=== PATIENT | female | born 1990 | race Caucasian/White ===

== ENCOUNTER 2018-07-08 12:27 | Inpatient (IN) | payer BC ==
--- NOTE | 2018-07-08 13:06 | P.HPOB ---
History of Present Illness H&P Date: 07/08/18 Chief Complaint: Twins at 36-6/7 This is a 28-year-old 2 para 1001 woman with an estimated due date of who presents at 36-6/7 weeks' gestation with diamniotic dichorionic twin gestation. She is found to have advanced cervical dilation, probable early labor in the office today. One week ago at routine visit she was 2 cm dilated. Today upon pelvic examination she is 5+ centimeters dilated, 80% effaced and vertex of twin A is in the -2 station. She has been vertex vertex throughout the duration of this however bedside ultrasound at this time shows vertex breech presentation. For that reason she is admitted in early active labor with on vertex breech twins for primary low transverse section. has otherwise been complicated by gestational diabetes which she takes metformin 1500 mg per day. Laboratory data: Group B strep negative, blood type O positive, antibody screen negative, rubella immune, VDRL nonreactive, hepatitis B surface antigen negative , HIV negative, glucose tolerance testing abnormal. Obstetric history is significant for term normal spontaneous vaginal delivery at 38 weeks gestation. complicated by gestational hypertension. She is a second degree perineal laceration. Review of Systems All systems: negative Past Medical History Past Medical History: No Reported History Additional Past Medical History / Comment(s): gestational diabetes May 2018 , PCOS History of Any Multi-Drug Resistant Organisms: None Reported Additional Past Surgical History / Comment(s): Kidney surgery as an infant, EGD 2010, surgery to pelvic growth plates 2000 and 2001. [place] teeth removal. Additional Past Anesthesia/Blood Transfusion Reaction / Comment(s): Family history of malignant hyperthermia with general anesthetic Smoking Status: Never smoker - Past Family History Mother Family Medical History: Diabetes Mellitus, Hypertension Medications and Allergies Home Medications Medication Instructions Recorded Confirmed Type Vit No.124/Iron/Folic 1 each PO DAILY 05/24/15 06/03/18 History [ Vitamin Tablet] Folic Acid 1 mg PO DAILY 06/03/18 06/03/18 History Loratadine 10 mg PO DAILY 06/03/18 06/03/18 History Thyroid,Pork [Thyroid] 60 mg PO DAILY 06/03/18 06/03/18 History metFORMIN HCL [Glucophage] 1,500 mg PO DAILY 06/03/18 06/03/18 History Allergies Allergy/AdvReac Type Severity Reaction Status Date / Time No Known Allergies Allergy Verified 06/03/18 14:45 Exam Bedside ultrasound shows twin a vertex presentation and twin B breech to transverse presentation. She is tahmina approximately every 6-10 minutes. heart tones are reassuring by external monitoring. Cervix is 5-6 cm dilated, 80% effaced and twin A is in the -2 station. Assessment and Plan (1) 36 to 37 weeks gestation of Current Visit: Yes Status: Acute Code(s): SBW0651 - SNOMED Code(s): 890271289 (2) Twins Current Visit: Yes Status: Acute Code(s): Z37.9 - OUTCOME OF DELIVERY, UNSPECIFIED SNOMED Code(s): 48194904 (3) Gestational diabetes Current Visit: Yes Status: Acute Code(s): O24.419 - GESTATIONAL DIABETES MELLITUS IN , UNSP CONTROL SNOMED Code(s): 22810722 Plan: 28-year-old 2 para 1001 woman with diamniotic dichorionic twins at 36-6/ 7 weeks gestation admitted with advanced cervical dilation, probable early active labor. She is counseled that vertex, non-vertex twins are recommended to be delivered by sections in 2 decrease risks of the after coming twin. Briefly reviewed risks and benefits and consent is obtained. Plan is to await her 's arrival and proceed to section. Should she be in active labor with cervical change we may need to proceed to sooner than that. She is known group B strep negative and Rh+.
[2018-07-08 13:25] VITALS: BMI 36.6
[2018-07-08] MEDS ORDERED: ceFAZolin IN SWFI 2 GM/20 ML SYRINGE IVP ONE (13:34)
[2018-07-08] MEDS ORDERED: CITRIC ACID-SODIUM CITRATE 15 ML CUP PO ONE (13:34)
[2018-07-08 13:38] LABS: Glucose,Whole Blood 78 mg/dL (75-99)
[2018-07-08] MEDS: LACTATED RINGERS 1,000 ML IV SCH ×2 (14:07→18:46)
[2018-07-08 14:08] LABS: Basophils % (A) 0 %; Eosinophils # (A) 0.1 k/uL (0-0.7); Eosinophils % (A) 1 %; HCT 36.2 % (34.0-46.0); Hypochromasia Slight; Lymphocytes % (A) 23 %; MCH 26.9 pg (25.0-35.0); MCV 81.5 fL (80.0-100.0); Mean Platelet Volume 9.2; Monocytes # (A) 0.6 k/uL (0-1.0); Monocytes % (A) 7 %; Neutrophils # (A) 5.8 k/uL (1.3-7.7); Neutrophils % (A) 66 %; Platelet Count 241 k/uL (150-450); RBC 4.45 m/uL (3.80-5.40); WBC 8.7 k/uL (3.8-10.6)
[2018-07-08] MEDS ORDERED: ONDANSETRON 4 MG/2 ML VIAL ONE (15:16)
[2018-07-08] MEDS ORDERED: PHENYLEPHRINE-0.9% NACL SYG 1 MG/10 ML SYRINGE ONE (15:16)
[2018-07-08] MEDS ORDERED: MORPHINE SULFATE (PF) 0.3 MG/0.3 ML SYR ONE (15:16)
[2018-07-08] MEDS ORDERED: OXYTOCIN 10 UNIT/ML 1 ML VIAL ONE (15:16)
[2018-07-08] MEDS ORDERED: fentaNYL (PF) 50 MCG/ML 2 ML AMP ONE (15:16)
--- NOTE | 2018-07-08 16:22 | P.OP ---
Date of Procedure: 07/08/18 Preoperative Diagnosis: Intrauterine diamniotic dichorionic twin gestation at 36-6/7 weeks labor Vertex, breech presentation Gestational diabetes Postoperative Diagnosis: Same Procedure(s) Performed: Primary low transverse section Anesthesia: spinal Surgeon: Niyah Looney Waitstaff Captain #1: Reema Porter Estimated Blood Loss (ml): 500 IV fluids (ml): 1,700 Urine output (ml): 700 Pathology: other (Placentas) Condition: stable Disposition: PACU Indications for Procedure: This is a 28-year-old 2 para 1001 woman who is at 36-6/7 weeks ' gestation with diamniotic dichorionic twins. She was found on routine assessment to have advanced cervical dilation of 5+ centimeters with reports of increasing contraction frequency. She was therefore sent to the hospital for probable labor. She was found by bedside ultrasound to be in the vertex, breech presentation therefore recommendations for delivery were made. She was irregularly tahmina on and both infants were reassuring by external monitoring. Operative Findings: Twin A: Female, vertex presentation with Apgars of 8 at 1 minute and 9 at 5 minutes weighing 5 lbs. 7 oz., 2480 g. Twin B: Male, compound breech presentation with right foot presenting at the incision and left foot above the infant's vertex. Apgars not officially assigned at time of dictation. required resuscitation but by the five- minute najma did have spontaneous cry on good color and improving tone. Weight was 5 lbs. 14 oz., 2675 g. Normal appearing uterus tubes and ovaries. Normal-appearing twin placenta. Description of Procedure: Patient was taken to the operating room where spinal anesthetic was administered without incident. Mcdowell catheter was in place. She was positioned , prepped and draped in the dorsal supine position with a leftward tilt. After anesthetic was confirmed adequate a low transverse skin incision was made and carried down to the underlying fascia sharply and with the electrocautery. The fascia was incised in the midline and extended bilaterally with the Mao scissors. The inferior and superior aspects of the fascial incision were elevated and the underlying rectus muscles dissected off sharply. The rectus muscles were bluntly in the midline and the peritoneum was identified , tented up and entered sharply. The peritoneal incision was extended inferiorly and superiorly with the Metzenbaum scissors with good visualization of the bladder. The bladder blade was placed and the vesicouterine peritoneum was tented up and entered sharply. The bladder flap was created both sharply and digitally. The bladder blade was replaced. A low transverse uterine incision was made and carried down to the amniotic membrane sharply. Membranes were ruptured and clear fluid was noted. Uterine incision was extended bilaterally bluntly. Vertex of infant a was easily delivered from the incision and the nose and mouth were bulb suctioned. The rest the infant was delivered easily onto the field with the cord was clamped and cut and she was handed off to the waiting pediatric nurses. The uterus was then explored and fluid was noted of infant B to be presenting through the uterine incision with amniotic membranes intact. Mcdowell was grasped and membranes were ruptured. A hand then immediately presented alongside the foot. This was reduced and the uterus was explored. 1 foot was grasped which was believed to be the right foot however the left foot was above the 's head which was in the maternal left upper abdomen. The was gently rotated the hip and knee were flexed to allow for delivery of the other foot to the level of the incision. The infant was then gently delivered with the aid of a moistened laparotomy towel to the level of the scapula. The right arm was then easily reduced and the infant was rotated. This then placed the 's left arm above the head. This was gently drawn down with flexion at the elbow Cervidil could be delivered. The head was then flexed and delivered from the incision. The cord was rapidly clamped and cut and the was taken to the warmer. The uterus was then explored and the placenta was manually delivered. The uterus was then exteriorized and cleared of all clot and debris. The uterine incision was delineated with Valderrama clamps and closed in a running locked fashion with 0 Vicryl suture, followed by second imbricating layer of the same suture. The uterus was then returned to the abdomen and the gutters were cleared of all clot and debris. The uterine incision was inspected and noted to be hemostatic. The urine was clear. Fascial edges and peritoneal edges and rectus muscles were inspected and noted to be hemostatic. The rectus muscles were reapproximated with 0 Vicryl suture in an interrupted fashion in the midline as the patient had significant diastases. The fascia was then closed in a running fashion with 0 Vicryl suture. Subcuticular tissue was irrigated and closed with 3-0 chromic suture. The skin was then closed with 4-0 Vicryl in subcutaneous fashion. Dressing was applied. All counts reported to me as correct by the operating room staff and the patient did receive antibiotics and Pitocin following cord clamp. The uterus was massaged and expressed of a small amount of clot and debris and the patient was transported recovery area in stable condition
[2018-07-08] MEDS ORDERED: diphenhydrAMINE 50 MG/ML 1 ML VIAL IVP PRN ×2 (16:23)
[2018-07-08] MEDS ORDERED: METOCLOPRAMIDE 5 MG/ML 2 ML VIAL IVP PRN (16:23)
[2018-07-08] MEDS ORDERED: NALOXONE 0.4 MG/ML 1 ML VIAL IV PRN ×2 (16:23→17:17)
[2018-07-08] MEDS ORDERED: ZOLPIDEM 5 MG TAB PO PRN (16:23)
[2018-07-08] MEDS ORDERED: diphenhydrAMINE 25 MG CAP PO PRN (16:23)
[2018-07-08] MEDS ORDERED: ONDANSETRON 4 MG/2 ML VIAL IVP PRN (16:23)
[2018-07-08] MEDS ORDERED: SIMETHICONE 80 MG CHEWABLE PO PRN (16:23)
[2018-07-08] MEDS ORDERED: diphenhydrAMINE 50 MG CAP PO PRN (16:23)
[2018-07-08] MEDS ORDERED: OXYTOCIN 20 UNITS/1000 ML NS 1,000 ML IV SCH (16:30)
[2018-07-08] MEDS ORDERED: MORPHINE SULFATE 4 MG/ML SYRINGE IVP PRN (17:17)
[2018-07-09] MEDS: SENNOSIDES-DOCUSATE SODIUM 1 EACH TAB PO SCH ×3 (03:42→21:10)
[2018-07-09] MEDS: LACTATED RINGERS 1,000 ML IV SCH ×5 (03:47→23:24)
[2018-07-09] MEDS: KETOROLAC 30 MG/ML 1 ML VIAL IVP PRN ×2 (06:36→12:27)
--- NOTE | 2018-07-09 08:07 | P.PNOBGPC ---
Subjective - Subjective Principal diagnosis: Twins at 36-6/7 Interval history: Unable to spontaneously void with Mcdowell catheter removed. Was straight cath 1. Patient reports: Reports appetite normal, Reports pain well controlled, Reports ambulating normally, Denies voiding normally : doing well (Twin A, girl doing well in the room. Twin B, boy, in the special care nursery) Objective - Vital Signs Latest vital signs: Vital Signs Temp Pulse Resp BP Pulse Ox 07/09/18 06:01 82 07/09/18 06:00 16 07/09/18 04:00 98.7 F 82 16 107/58 96 07/09/18 02:00 18 98 07/09/18 00:00 98.2 F 75 18 119/65 95 07/08/18 22:00 16 07/08/18 20:17 16 07/08/18 20:00 97.8 F 73 16 120/74 97 07/08/18 18:20 71 16 133/75 07/08/18 18:17 16 97 07/08/18 17:50 70 16 115/75 07/08/18 17:20 69 16 122/65 07/08/18 17:17 16 95 07/08/18 17:05 71 16 126/68 07/08/18 16:50 75 16 123/61 07/08/18 16:33 95.6 F L 82 16 102/51 07/08/18 16:20 84 16 114/55 07/08/18 13:04 96.8 F L 96 16 128/82 96 Intake and Output 07/08/18 07/09/18 07/09/18 22:59 06:59 14:59 Output Total 1500 1200 Balance -1500 -1200 Output: Urine 1200 Estimated Blood Loss 1500 - Exam Extremities: Present: normal, edema Abdomen: Present: normal appearance, soft Incision: Present: normal, dry, intact, dressed Uterus: Present: normal Assessment and Plan (1) 36 to 37 weeks gestation of Current Visit: Yes Status: Acute Code(s): [id number] - SNOMED Code(s): 188934521 (2) Twins Current Visit: Yes Status: Acute Code(s): Z37.9 - OUTCOME OF DELIVERY, UNSPECIFIED SNOMED Code(s): 37207950 (3) Gestational diabetes Current Visit: Yes Status: Acute Code(s): O24.419 - GESTATIONAL DIABETES MELLITUS IN , UNSP CONTROL SNOMED Code(s): 90302853 (4) S/P section Narrative/Plan: Postop day 1 status post primary low transverse section for vertex, breech twins. Evidence of delivery reviewed with the patient and her . She is recovering well from her , routine care. Current Visit: Yes Status: Acute Code(s): Z98.891 - HISTORY OF UTERINE SCAR FROM PREVIOUS SURGERY SNOMED Code(s): 715075166
[2018-07-09] MEDS: THYROID, PORK 30 MG TAB PO SCH (08:43)
--- NOTE | 2018-07-09 09:11 | P.PN ---
Progress Note - Text Date:07/09 Time:707am Patient is status post . Patient seen this morning with VAS score of 2.no c/o of pruritus, no c/o nausea/vomiting, comfortable and doing well.
[2018-07-09 09:41] LABS: Basophils % (A) 0 %; Eosinophils # (A) 0.1 k/uL (0-0.7); Eosinophils % (A) 1 %; HCT 31.9 % (34.0-46.0); HGB 10.2 gm/dL (11.4-16.0); Hypochromasia Slight; Lymphocytes # (A) 1.5 k/uL (1.0-4.8); Lymphocytes % (A) 16 %; MCH 25.9 pg (25.0-35.0); MCHC 32.1 g/dL (31.0-37.0); MCV 80.6 fL (80.0-100.0); Mean Platelet Volume 10.6; Monocytes # (A) 0.5 k/uL (0-1.0); Monocytes % (A) 6 %; Neutrophils # (A) 6.8 k/uL (1.3-7.7); Neutrophils % (A) 75 %; Platelet Count 166 k/uL (150-450); RBC 3.96 m/uL (3.80-5.40); WBC 9.1 k/uL (3.8-10.6)
[2018-07-09] MEDS: IBUPROFEN 600 MG TAB PO PRN (18:32)
[2018-07-09] MEDS: ACETAMINOPHEN TAB 325 MG TAB PO PRN (21:09)
[2018-07-10] MEDS: IBUPROFEN 600 MG TAB PO PRN ×4 (01:08→20:59)
[2018-07-10] MEDS: ACETAMINOPHEN TAB 325 MG TAB PO PRN ×2 (06:27→10:53)
[2018-07-10] MEDS: SENNOSIDES-DOCUSATE SODIUM 1 EACH TAB PO SCH ×2 (08:48→20:59)
[2018-07-10 09:23] VITALS: RESP 16
--- NOTE | 2018-07-10 09:37 | P.PNOBGPC ---
Subjective - Subjective Principal diagnosis: POD 2 status post primary for twins, vertex/ breech Patient reports: Reports appetite normal, Reports voiding normally, Reports pain well controlled, Reports ambulating normally [place]: doing well (A in the room with mom, B remains in the nursery doing well.) Objective - Vital Signs Latest vital signs: Vital Signs Temp Pulse Resp BP Pulse Ox 07/10/18 08:00 98.7 F 84 16 129/58 07/10/18 00:00 98.3 F 93 18 109/63 94 L 07/09/18 16:00 97.9 F 92 16 121/75 07/09/18 14:00 16 07/09/18 12:00 98.1 F 95 16 116/76 07/09/18 10:00 16 Intake and Output 07/09/18 07/10/18 07/10/18 22:59 06:59 14:59 Other: # Voids 1 # Bowel Movements 1 - Exam Extremities: Present: normal Abdomen: Present: normal appearance, soft Incision: Present: normal, dry, intact Uterus: Present: firm - Labs Labs: Abnormal Lab Results - Last 24 Hours (Table) 07/09/18 Range/Units 09:10 Hgb 10.2 L (11.4-16.0) gm/dL Hct 31.9 L (34.0-46.0) % Assessment and Plan (1) 36 to 37 weeks gestation of Current Visit: Yes Status: Acute Code(s): OSF1227 - SNOMED Code(s): 461808253 (2) Gestational diabetes Current Visit: Yes Status: Acute Code(s): O24.419 - GESTATIONAL DIABETES MELLITUS IN , UNSP CONTROL SNOMED Code(s): 15943483 (3) S/P section Current Visit: Yes Status: Acute Code(s): Z98.891 - HISTORY OF UTERINE SCAR FROM PREVIOUS SURGERY SNOMED Code(s): 903358849 (4) Twins Current Visit: Yes Status: Acute Code(s): Z37.9 - OUTCOME OF DELIVERY, UNSPECIFIED SNOMED Code(s): 31092315 (5) Family history of malignant hyperthermia Current Visit: No Status: Acute Code(s): Z84.89 - FAMILY HISTORY OF OTHER SPECIFIED CONDITIONS SNOMED Code(s): 130737023 Plan: Patient continues to do well postoperatively. She is ambulating and voiding without difficulty. She is tolerating a regular diet without nausea or vomiting. She denies concerns.
[2018-07-10] MEDS: HYDROcodone/APAP 5-325MG 1 EACH TAB PO PRN ×3 (12:16→23:53)
[2018-07-11] MEDS: IBUPROFEN 600 MG TAB PO PRN ×4 (02:56→21:26)
[2018-07-11] MEDS: HYDROcodone/APAP 5-325MG 1 EACH TAB PO PRN ×3 (06:01→19:07)
[2018-07-11] MEDS: SENNOSIDES-DOCUSATE SODIUM 1 EACH TAB PO SCH ×2 (09:21→21:26)
[2018-07-11] MEDS: THYROID, PORK 30 MG TAB PO SCH (09:49)
--- NOTE | 2018-07-11 11:42 | P.PNOBGPC ---
Subjective - Subjective Principal diagnosis: POD 3 LTCS twin Interval history: Patient continues to do well postoperatively. Her pain is well-controlled, she is ambulating and voiding without difficulty. She is breast-feeding/pumping. She denies concerns today Patient reports: Reports appetite normal, Reports voiding normally, Reports pain well controlled, Reports ambulating normally : doing well (A is doing well and in the room with mom, be remains in the nursery doing well) Objective - Vital Signs Latest vital signs: Vital Signs Temp Pulse Resp BP 07/11/18 08:50 97.7 F 81 16 124/74 07/11/18 00:00 97.5 F L 82 16 115/61 07/10/18 16:00 98.5 F 89 16 123/64 Intake and Output 07/10/18 07/11/18 07/11/18 22:59 06:59 14:59 Other: # Bowel Movements 0 - Exam Extremities: Present: normal Abdomen: Present: normal appearance, soft Incision: Present: normal, dry, intact Uterus: Present: normal, firm Assessment and Plan (1) 36 to 37 weeks gestation of Current Visit: Yes Status: Acute Code(s): GRP9593 - SNOMED Code(s): 020413907 (2) Gestational diabetes Current Visit: Yes Status: Acute Code(s): O24.419 - GESTATIONAL DIABETES MELLITUS IN , UNSP CONTROL SNOMED Code(s): 07051749 (3) S/P section Current Visit: Yes Status: Acute Code(s): Z98.891 - HISTORY OF UTERINE SCAR FROM PREVIOUS SURGERY SNOMED Code(s): 120225874 (4) Twins Current Visit: Yes Status: Acute Code(s): Z37.9 - OUTCOME OF DELIVERY, UNSPECIFIED SNOMED Code(s): 82403772 (5) Family history of malignant hyperthermia Current Visit: No Status: Acute Code(s): Z84.89 - FAMILY HISTORY OF OTHER SPECIFIED CONDITIONS SNOMED Code(s): 163906664 Plan: We'll continue routine postoperative care and anticipate discharge tomorrow on postop day 4
[2018-07-12] MEDS: HYDROcodone/APAP 5-325MG 1 EACH TAB PO PRN ×3 (00:08→12:16)
[2018-07-12] MEDS: LACTATED RINGERS 1,000 ML IV SCH ×2 (02:58)
[2018-07-12] MEDS: IBUPROFEN 600 MG TAB PO PRN ×3 (03:00→15:39)
[2018-07-12] MEDS: SENNOSIDES-DOCUSATE SODIUM 1 EACH TAB PO SCH (09:09)
[2018-07-12] MEDS: THYROID, PORK 30 MG TAB PO SCH (10:26)
--- NOTE | 2018-07-12 13:15 | P.DS ---
Providers Date of admission: 07/08/18 12:27 Expected date of discharge: 07/12/18 Attending physician: Niyah Looney Primary care physician: Stated None - Discharge Diagnosis(es) (1) 36 to 37 weeks gestation of Current Visit: Yes Status: Acute (2) Gestational diabetes Current Visit: Yes Status: Acute (3) S/P section Current Visit: Yes Status: Acute (4) Twins Current Visit: Yes Status: Acute (5) Family history of malignant hyperthermia Current Visit: No Status: Acute Hospital Course: This is a very pleasant 28-year-old 2 para 1001 at 36-6/7 weeks with known dye dye twin that presented to labor and delivery at 5 cm of dilation. Patient was admitted to labor and delivery on further examination baby A was noted to be vertex presentation baby B was noted to be breech. Therefore the decision was made to take the patient back for primary low transverse section. was completed without difficulty for further details on the please see the operative report. Patient has done well postoperatively. She is ambulating and voiding without difficulty. Her pain is well-controlled and her lochia is minimal. She is tolerating a regular diet without nausea or vomiting she is pumping at this point as baby B has been in the nursery the last few days. Baby A did well after delivery and has been in the room with her. Infant a was delivered at 1541 weight of 5 lbs. 7 oz. Apgars of 8 and 9 baby B delivered at 1544 weight of 514 Apgars of 1, 6 and 9. Patient is stable for discharge today on this postop day #4 Patient Condition at Discharge: Good Plan - Discharge Summary New Discharge Prescriptions: No Action Vit No.124/Iron/Folic [ Vitamin Tablet] 1 each PO DAILY Thyroid,Pork [Thyroid] 60 mg PO DAILY metFORMIN HCL [Glucophage] 1,500 mg PO DAILY Loratadine 10 mg PO DAILY Folic Acid 1 mg PO DAILY metFORMIN HCL 1 tablet PO BID Discharge Medication List Vit No.124/Iron/Folic [ Vitamin Tablet] 1 each PO DAILY [History] Folic Acid 1 mg PO DAILY 06/03/18 [History] Loratadine 10 mg PO DAILY 06/03/18 [History] Thyroid,Pork [Thyroid] 60 mg PO DAILY 06/03/18 [History] metFORMIN HCL [Glucophage] 1,500 mg PO DAILY 06/03/18 [History] metFORMIN HCL 1 tablet PO BID 07/08/18 [History] Follow up Appointment(s)/Referral(s): Niyah Looney MD [STAFF PHYSICIAN] - 2 Weeks Patient Instructions/Handouts: (DC), (GEN) Discharge Disposition: HOME SELF-CARE
[2018-07-12 16:19] VITALS: BP 127/81; PULSE 79; TEMP 99
== END 2018-07-12 23:00 | disposition home or self-care (01) | DRG 786 ==
LOC: 4FBP 12:27
PROVIDERS: ADMIT Obstetrics & Gynecology; ATTEND Obstetrics & Gynecology
PROC: 10D00Z1 Extraction of Products of Conception, Low, Open Approach (ICD-10-PCS; principal; 2018-07-08 15:30)
DX: O30.043 Twin pregnancy, dichorionic/diamniotic, third trimester (principal); O60.14X0 Preterm labor third trimester with preterm delivery third trimester, not applicable or unspecified; Z37.2 Twins, both liveborn; O24.425 Gestational diabetes mellitus in childbirth, controlled by oral hypoglycemic drugs; O32.1XX2 Maternal care for breech presentation, fetus 2; Z3A.36 36 weeks gestation of pregnancy; E28.2 Polycystic ovarian syndrome; Z79.890 Hormone replacement therapy; Z79.84 Long term (current) use of oral hypoglycemic drugs; Z79.899 Other long term (current) drug therapy; Z83.3 Family history of diabetes mellitus; Z84.89 Family history of other specified conditions; Z82.49 Family history of ischemic heart disease and other diseases of the circulatory system
CPT/HCPCS: 85025; 86850; 86900; 86901; 88307

== ENCOUNTER 2019-08-06 19:41 | Emergency (ER) | payer BC ==
[2019-08-06 19:56] VITALS: TEMP 101.5
[2019-08-06] MEDS ORDERED: SODIUM CHLORIDE 0.9% 1,000 ML IV STA (20:04)
[2019-08-06] MEDS ORDERED: ONDANSETRON 4 MG/2 ML VIAL IVP STA (20:04)
[2019-08-06] MEDS ORDERED: ACETAMINOPHEN TAB 500 MG TAB PO STA (20:05)
[2019-08-06] MEDS ORDERED: IBUPROFEN IV 600 MG in SODIUM CHLORIDE 0.9% 250 ML IV STA (20:05)
[2019-08-06] MEDS ORDERED: SODIUM CHLORIDE 0.9% 500 ML 500 ML IV ONE (20:07)
--- NOTE | 2019-08-06 20:07 | ED ---
General Adult HPI - General Source: patient, RN notes reviewed, old records reviewed Mode of arrival: ambulatory Limitations: no limitations <Jimi Griffin - Last Filed: 08/06/19 21:00> <Bo Isabel - Last Filed: 08/06/19 22:40> - General Chief complaint: Abdominal Pain Stated complaint: Vomiting, R side pain Time Seen by Provider: 08/06/19 19:55 - History of Present Illness Initial comments: This is a 29-year-old female presents to the emergency department complaining of right-sided flank pain. Patient states the pain got worse today and she started vomiting. Patient states the car right in was very painful because any bump they hit the pain got worse. Patient states she's had no hematuria but she has had dysuria. Patient also states she has had a fever as of this morning. Patient denies any diarrhea. Patient denies any chest pain difficulty breathing or shortness of breath. Patient denies any cough. Patient denies any lightheadedness or dizziness. Patient denies any rashes or lesions. Patient denies any body aches. (Jimi Griffin) - Related Data Home Medications Medication Instructions Recorded Confirmed Vit No.124/Iron/Folic 1 each PO DAILY 05/24/15 07/08/18 [ Vitamin Tablet] Folic Acid 1 mg PO DAILY 06/03/18 07/08/18 Loratadine 10 mg PO DAILY 06/03/18 07/08/18 Thyroid,Pork [Thyroid] 60 mg PO DAILY 06/03/18 07/08/18 metFORMIN HCL [Glucophage] 1,500 mg PO DAILY 06/03/18 07/08/18 metFORMIN HCL 1 tablet PO BID 07/08/18 07/08/18 Allergies Allergy/AdvReac Type Severity Reaction Status Date / Time No Known Allergies Allergy Verified 08/06/19 19:56 Review of Systems ROS Other: All systems not noted in ROS Statement are negative. <Jimi Griffin - Last Filed: 08/06/19 21:00> ROS Other: All systems not noted in ROS Statement are negative. <Bo Isabel - Last Filed: 08/06/19 22:40> ROS Statement: Those systems with pertinent positive or pertinent negative responses have been documented in the HPI. Past Medical History Past Medical History: Thyroid Disorder Additional Past Medical History / Comment(s): gestational diabetes May 2018, PCOS History of Any Multi-Drug Resistant Organisms: None Reported Past Surgical History: Section Additional Past Surgical History / Comment(s): Kidney surgery as an , EGD 2010, surgery to pelvic growth plates 2000 and 2001. [place] teeth removal. Past Anesthesia/Blood Transfusion Reactions: No Reported Reaction Additional Past Anesthesia/Blood Transfusion Reaction / Comment(s): Family history of malignant hyperthermia with general anesthetic Past Psychological History: No Psychological Hx Reported Smoking Status: Never smoker Past Alcohol Use History: None Reported Past Drug Use History: None Reported - Past Family History Mother Family Medical History: Diabetes Mellitus, Hypertension <Jimi Griffin - Last Filed: 08/06/19 21:00> General Exam Limitations: no limitations <Jimi Griffin - Last Filed: 08/06/19 21:00> - General Exam Comments Initial Comments: GENERAL: Patient is well-developed and well-nourished. Patient is nontoxic and well- hydrated and is in mild distress. ENT: Neck is soft and supple. No significant lymphadenopathy is noted. Oropharynx is clear. Moist mucous membranes. Neck has full range of motion without eliciting any pain. EYES: The sclera were anicteric and conjunctiva were pink and moist. Extraocular movements were intact and pupils were equal round and reactive to light. Eyelids were unremarkable. PULMONARY: Unlabored respirations. Good breath sounds bilaterally. No audible rales rhonchi or wheezing was noted. CARDIOVASCULAR: There is a regular rate and rhythm without any murmurs gallops or rubs. ABDOMEN: right lower quadrant abdominal tenderness. No palpable organomegaly was noted. There is no palpable pulsatile mass. SKIN: Skin is clear with no lesions or rashes and otherwise unremarkable. NEUROLOGIC: Patient is alert and oriented x3. Cranial nerves II through XII are grossly intact. Motor and sensory are also intact. Normal speech, volume and content. Symmetrical smile. MUSCULOSKELETAL: Normal extremities with adequate strength and full range of motion. LYMPHATICS: No significant lymphadenopathy is noted PSYCHIATRIC: Normal psychiatric evaluation. (Jimi Griffin) Course Vital Signs 08/06/19 08/06/19 19:53 22:02 Temperature 101.5 F H Pulse Rate 117 H 98 Respiratory 20 18 Rate Blood Pressure 121/78 107/53 O2 Sat by Pulse 96 96 Oximetry Medical Decision Making - Lab Data Result diagrams: 08/06/19 20:30 08/06/19 20:30 <Jimi Griffin - Last Filed: 08/06/19 21:00> - Lab Data Result diagrams: 08/06/19 20:30 08/06/19 20:30 <Bo Isabel - Last Filed: 08/06/19 22:40> - Medical Decision Making This patient will be taking over by Dr. Isabel 9 PM (Jimi Griffin) patient's care was signed out at shift change awaiting urinalysis and CT results to rule out appendicitis. Patient had presented with right flank pain and right lower quadrant pain and several episodes of vomiting. She has fever on presentation. I did reexamine the patient she has a soft abdomen, no focal tenderness non-rigid Improved vital signs after IV hydration and anti-pyretics. patient has normal CBC, normal CMP, urinalysis negative for UTI. CT performed shows fluid within the small bowel consistent with an enteritis or ileus, normal appendix. Patient is instructed to return with persistent vomiting and to monitor for flatus and bowel movements. Likely will develop diarrhea. further history does reveal that the patient's daughters both had gastrointesti nal illness with vomiting. (Bo Isabel) - Lab Data Lab Results 08/06/19 08/06/19 08/06/19 Range/Units 20:30 20:30 20:30 WBC 8.4 (3.8-10.6) k/uL RBC 5.22 (3.80-5.40) m/uL Hgb 14.6 (11.4-16.0) gm/dL Hct 46.0 (34.0-46.0) % MCV 88.1 (80.0-100.0) fL MCH 28.0 (25.0-35.0) pg MCHC 31.8 (31.0-37.0) g/dL RDW 13.1 (11.5-15.5) % Plt Count 323 (150-450) k/uL Neutrophils % 87 % Lymphocytes % 6 % Monocytes % 4 % Eosinophils % 1 % Basophils % 1 % Neutrophils # 7.3 (1.3-7.7) k/uL Lymphocytes # 0.5 L (1.0-4.8) k/uL Monocytes # 0.3 (0-1.0) k/uL Eosinophils # 0.1 (0-0.7) k/uL Basophils # 0.1 (0-0.2) k/uL Sodium 139 (137-145) mmol/L Potassium 4.2 (3.5-5.1) mmol/L Chloride 105 (98-107) mmol/L Carbon Dioxide 22 (22-30) mmol/L Anion Gap 12 mmol/L BUN 22 H (7-17) mg/dL Creatinine 0.70 (0.52-1.04) mg/dL Est GFR (CKD-EPI)AfAm >90 (>60 ml/min/1.73 sqM) Est GFR (CKD-EPI)NonAf >90 (>60 ml/min/1.73 sqM) Glucose 115 H (74-99) mg/dL Calcium 8.8 (8.4-10.2) mg/dL Total Bilirubin 0.6 (0.2-1.3) mg/dL AST 24 (14-36) U/L ALT 20 (4-34) U/L Alkaline Phosphatase 90 (38-126) U/L Total Protein 8.2 (6.3-8.2) g/dL Albumin 4.5 (3.5-5.0) g/dL Amylase 49 (30-110) U/L Lipase 66 (23-300) U/L Urine Color Urine Appearance (Clear) Urine pH (5.0-8.0) Ur Specific [place] (1.001-1.035) Urine Protein (Negative) Urine Glucose (UA) (Negative) Urine Ketones (Negative) Urine Blood (Negative) Urine Nitrite (Negative) Urine Bilirubin (Negative) Urine Urobilinogen (<2.0) mg/dL Ur Leukocyte Esterase (Negative) Urine RBC (0-5) /hpf Urine WBC (0-5) /hpf Ur Squamous Epith Cells (0-4) /hpf Urine Mucus (None) /hpf Urine HCG, Qual Not Detected (Not Detectd) Influenza Type A RNA (Not Detectd) Influenza Type B (PCR) (Not Detectd) 08/06/19 08/06/19 Range/Units 20:30 21:20 WBC (3.8-10.6) k/uL RBC (3.80-5.40) m/uL Hgb (11.4-16.0) gm/dL Hct (34.0-46.0) % MCV (80.0-100.0) fL MCH (25.0-35.0) pg MCHC (31.0-37.0) g/dL RDW (11.5-15.5) % Plt Count (150-450) k/uL Neutrophils % % Lymphocytes % % Monocytes % % Eosinophils % % Basophils % % Neutrophils # (1.3-7.7) k/uL Lymphocytes # (1.0-4.8) k/uL Monocytes # (0-1.0) k/uL Eosinophils # (0-0.7) k/uL Basophils # (0-0.2) k/uL Sodium (137-145) mmol/L Potassium (3.5-5.1) mmol/L Chloride (98-107) mmol/L Carbon Dioxide (22-30) mmol/L Anion Gap mmol/L BUN (7-17) mg/dL Creatinine (0.52-1.04) mg/dL Est GFR (CKD-EPI)AfAm (>60 ml/min/1.73 sqM) Est GFR (CKD-EPI)NonAf (>60 ml/min/1.73 sqM) Glucose (74-99) mg/dL Calcium (8.4-10.2) mg/dL Total Bilirubin (0.2-1.3) mg/dL AST (14-36) U/L ALT (4-34) U/L Alkaline Phosphatase (38-126) U/L Total Protein (6.3-8.2) g/dL Albumin (3.5-5.0) g/dL Amylase (30-110) U/L Lipase (23-300) U/L Urine Color Yellow Urine Appearance Clear (Clear) Urine pH 5.5 (5.0-8.0) Ur Specific [place] 1.035 (1.001-1.035) Urine Protein Trace H (Negative) Urine Glucose (UA) Negative (Negative) Urine Ketones Negative (Negative) Urine Blood Negative (Negative) Urine Nitrite Negative (Negative) Urine Bilirubin Negative (Negative) Urine Urobilinogen <2.0 (<2.0) mg/dL Ur Leukocyte Esterase Trace H (Negative) Urine RBC 2 (0-5) /hpf Urine WBC 1 (0-5) /hpf Ur Squamous Epith Cells 4 (0-4) /hpf Urine Mucus Occasional H (None) /hpf Urine HCG, Qual (Not Detectd) Influenza Type A RNA Not Detected (Not Detectd) Influenza Type B (PCR) Not Detected (Not Detectd) Disposition <Jimi Griffin - Last Filed: 08/06/19 21:00> Is patient prescribed a controlled substance at d/c from ED?: No Time of Disposition: 22:40 <Bo Isabel - Last Filed: 08/06/19 22:40> Clinical Impression: Abdominal pain, Nausea & vomiting Disposition: HOME SELF-CARE Condition: Good Instructions (If sedation given, give patient instructions): Abdominal Pain (ED), Acute Nausea and Vomiting (ED) Referrals: Shannne Donis MD [Primary Care Provider] - 1-2 days
[2019-08-06 20:43] LABS: Basophils # (A) 0.1 k/uL (0-0.2); Basophils % (A) 1 %; Eosinophils # (A) 0.1 k/uL (0-0.7); Eosinophils % (A) 1 %; HGB 14.6 gm/dL (11.4-16.0); Lymphocytes # (A) 0.5 k/uL (1.0-4.8); Lymphocytes % (A) 6 %; MCHC 31.8 g/dL (31.0-37.0); MCV 88.1 fL (80.0-100.0); Mean Platelet Volume 8.2; Monocytes # (A) 0.3 k/uL (0-1.0); Monocytes % (A) 4 %; Neutrophils # (A) 7.3 k/uL (1.3-7.7); Neutrophils % (A) 87 %; Platelet Count 323 k/uL (150-450); RBC 5.22 m/uL (3.80-5.40); RDW 13.1 % (11.5-15.5); WBC 8.4 k/uL (3.8-10.6)
[2019-08-06 20:51] LABS: ALT 20 U/L (4-34); AST 24 U/L (14-36); African American GFR (CKD) >90 (>60 ml/min/1.73 sqM); Albumin 4.5 g/dL (3.5-5.0); Alkaline Phosphatase 90 U/L (38-126); Amylase 49 U/L (30-110); Anion Gap 12 mmol/L; Blood Urea Nitrogen 22 mg/dL (7-17); Calcium 8.8 mg/dL (8.4-10.2); Carbon Dioxide 22 mmol/L (22-30); Chloride 105 mmol/L (98-107); Glucose 115 mg/dL (74-99); Non-African American GFR(CKD) >90 (>60 ml/min/1.73 sqM); Potassium 4.2 mmol/L (3.5-5.1); Sodium 139 mmol/L (137-145); Total Bilirubin 0.6 mg/dL (0.2-1.3); Total Protein 8.2 g/dL (6.3-8.2)
[2019-08-06 20:58] LABS: Appearance,Urine Clear (Clear); Bilirubin,Urine Negative (Negative); Blood,Urine Negative (Negative); Color,Urine Yellow; Glucose,Urine (UA) Negative (Negative); Ketones,Urine Negative (Negative); Leukocyte Esterase,Urine Trace (Negative); Mucus,Urine Occasional /hpf; Nitrite,Urine Negative (Negative); PH, Urine 5.5 (5.0-8.0); Protein,Urine Trace (Negative); RBC,Urine 2 /hpf (0-5); Specific Gravity,Urine 1.035 (1.001-1.035); Squamous Epithelial Cell,Urine 4 /hpf (0-4); Urobilinogen,Urine <2.0 mg/dL (<2.0); WBC,Urine 1 /hpf (0-5)
[2019-08-06 22:03] VITALS: RESP 18
--- NOTE | 2019-08-06 22:31 | CT ---
EXAM: CT Abdomen and Pelvis With Intravenous Contrast CLINICAL HISTORY: ITS.REASON CT Reason: abdominal pain TECHNIQUE: Axial computed tomography images of the abdomen and pelvis with intravenous contrast. CTDI is 29.2 mGy and DLP is 1429.7 mGy-cm. This CT exam was performed using one or more of the following dose reduction techniques: automated exposure control, adjustment of the mA and/or kV according to patient size, and/or use of iterative reconstruction technique. COMPARISON: Ultrasound abdomen on 12/10/2014 FINDINGS: Lung bases: Mild dependent atelectasis bilaterally. ABDOMEN: Liver: Probable hepatic steatosis. Additional focal fat along the falciform ligament. Hepatomegaly. Gallbladder and bile ducts: Unremarkable. No calcified stones. No ductal dilation. Pancreas: Unremarkable. No mass. No ductal dilation. Spleen: Unremarkable. No splenomegaly. Adrenals: Unremarkable. No mass. Kidneys and ureters: No hydronephrosis or obstructing stone. Stomach and bowel: Prominent fluid and gas-filled small bowel loops are nonspecific but may represent enteritis or ileus. No obstruction. PELVIS: Appendix: Normal appendix. Bladder: Mild prominence of the bladder wall may be secondary to decompression. Please correlate with urinalysis to evaluate for cystitis. Reproductive: Unremarkable as visualized. ABDOMEN and PELVIS: Intraperitoneal space: Unremarkable. No free air. No significant fluid collection. Bones/joints: No acute fracture. No dislocation. Soft tissues: Small fat-containing umbilical hernia. Vasculature: Unremarkable. No abdominal aortic aneurysm. Lymph nodes: Mildly prominent mesenteric lymph nodes are nonspecific but may be reactive. IMPRESSION: 1. Prominent fluid and gas-filled small bowel loops are nonspecific but may represent enteritis or ileus. 2. Mild prominence of the bladder wall may be secondary to decompression. Please correlate with urinalysis to evaluate for cystitis.
[2019-08-06 23:06] VITALS: BP 107/54; PULSE 69
== END 2019-08-06 23:05 | disposition home or self-care (01) ==
LOC: EC 19:41
DX: R11.2 Nausea with vomiting, unspecified (principal); R10.31 Right lower quadrant pain; R50.9 Fever, unspecified; E07.9 Disorder of thyroid, unspecified; Z79.890 Hormone replacement therapy
CPT/HCPCS: 36415; 80053; 82150; 83690; 85025; 81001; 81025; 87502; 74177; 99284; 96365; 96366; 96375; J2405; J1741; Q9967

== ENCOUNTER 2020-03-31 22:00 | Emergency (ER) | payer BC ==
--- NOTE | 2020-03-31 22:50 | ED ---
Abdominal Pain HPI - General Chief Complaint: Abdominal Pain Stated Complaint: Nausea,Vomiting Time Seen by Provider: 03/31/20 22:19 Source: patient Mode of arrival: ambulatory Limitations: no limitations - History of Present Illness Initial Comments: This patient is a 30-year-old woman who presents to be evaluated for mainly nausea and vomiting. She also did have some abdominal pain but that seems to improve with the vomiting. The patient states she was having nausea since earlier in the day and then around 4 began with vomiting. She has had which she thought may have been feculent material in the emesis. Patient indicates that her pain was epigastric cramping/burning and is just mild now. Patient states her last bowel movement was about 4 days ago but it is not unusual for her to go that long between bowel movements and at that time it seems normal. The patient has not noted any change in urination. Patient recently treated for some sort of intestinal helminth, taking metronidazole. MD Complaint: other -: hour(s) Location: epigastric Radiation: none Severity scale (1-10): 4 Quality: cramping Consistency: intermittent Improves With: vomiting Worsens With: nothing Associated Symptoms: nausea, vomiting - Related Data Home Medications Medication Instructions Recorded Confirmed Loratadine/Pseudoephedrine 1 tab PO DAILY PRN 03/31/20 03/31/20 [[place] D-12 Allergy-Sinus Tab] Thyroid,Pork [Nursing Home Assistant Thyroid] 90 mg PO QAM 03/31/20 03/31/20 metFORMIN HCL 1,000 mg PO QAM 03/31/20 03/31/20 metFORMIN HCL [Glucophage] 500 mg PO HS 03/31/20 03/31/20 Previous Rx's Medication Instructions Recorded Famotidine [Pepcid] 20 mg PO BID #14 tablet 04/01/20 Ondansetron Odt [Zofran ODT] 4 mg PO Q8HR PRN #10 tab 04/01/20 Allergies Allergy/AdvReac Type Severity Reaction Status Date / Time No Known Allergies Allergy Verified 03/31/20 23:34 Review of Systems ROS Statement: Those systems with pertinent positive or pertinent negative responses have been documented in the HPI. ROS Other: All systems not noted in ROS Statement are negative. Constitutional: Denies: fever, chills Respiratory: Denies: cough, dyspnea Cardiovascular: Denies: chest pain, palpitations Gastrointestinal: Reports: abdominal pain, nausea, vomiting, constipation. Denies: diarrhea, hematemesis, melena, hematochezia Genitourinary: Denies: dysuria, frequency, hematuria Musculoskeletal: Denies: back pain Skin: Denies: rash Neurological: Denies: headache, weakness, numbness Past Medical History Past Medical History: Thyroid Disorder Additional Past Medical History / Comment(s): gestational diabetes May 2018, PCOS, parasitic infection 02/2020 History of Any Multi-Drug Resistant Organisms: None Reported Past Surgical History: Section Additional Past Surgical History / Comment(s): Kidney surgery as an infant, EGD 2010, surgery to pelvic growth plates 2000 and 2001. [place] teeth removal. Past Anesthesia/Blood Transfusion Reactions: No Reported Reaction Additional Past Anesthesia/Blood Transfusion Reaction / Comment(s): Family history of malignant hyperthermia with general anesthetic Past Psychological History: No Psychological Hx Reported Smoking Status: Never smoker Past Alcohol Use History: None Reported Past Drug Use History: None Reported - Past Family History Mother Family Medical History: Diabetes Mellitus, Hypertension General Exam Limitations: no limitations General appearance: alert, in no apparent distress Head exam: Present: atraumatic, normocephalic Eye exam: Present: normal appearance. Absent: scleral icterus, conjunctival injection ENT exam: Present: normal oropharynx Neck exam: Present: normal inspection Respiratory exam: Present: normal lung sounds bilaterally. Absent: respiratory distress, wheezes, rales, rhonchi, stridor Cardiovascular Exam: Present: regular rate, normal rhythm, normal heart sounds. Absent: systolic murmur, diastolic murmur, rubs, gallop GI/Abdominal exam: Present: soft. Absent: distended, tenderness, guarding, rebound, rigid, mass, pulsatile mass, hernia Extremities exam: Present: normal inspection, normal capillary refill. Absent: pedal edema, calf tenderness Back exam: Present: normal inspection. Absent: CVA tenderness (R), CVA tenderness (L) Neurological exam: Present: alert Skin exam: Present: warm, dry, intact, normal color. Absent: rash Course Vital Signs 03/31/20 22:01 Temperature 99.1 F Pulse Rate 105 H Respiratory 18 Rate Blood Pressure 143/93 O2 Sat by Pulse 99 Oximetry Medical Decision Making - Lab Data Result diagrams: 03/31/20 22:36 03/31/20 22:36 Lab Results 03/31/20 03/31/20 03/31/20 Range/Units 22:36 22:36 22:36 WBC 13.3 H (3.8-10.6) k/uL RBC 5.26 (3.80-5.40) m/uL Hgb 14.9 (11.4-16.0) gm/dL Hct 46.1 H (34.0-46.0) % MCV 87.6 (80.0-100.0) fL MCH 28.3 (25.0-35.0) pg MCHC 32.3 (31.0-37.0) g/dL RDW 13.2 (11.5-15.5) % Plt Count 128 L (150-450) k/uL Neutrophils % 79 % Lymphocytes % 9 % Monocytes % 6 % Eosinophils % 3 % Basophils % 1 % Neutrophils # 10.6 H (1.3-7.7) k/uL Lymphocytes # 1.2 (1.0-4.8) k/uL Monocytes # 0.8 (0-1.0) k/uL Eosinophils # 0.5 (0-0.7) k/uL Basophils # 0.1 (0-0.2) k/uL Sodium (137-145) mmol/L Potassium (3.5-5.1) mmol/L Chloride (98-107) mmol/L Carbon Dioxide (22-30) mmol/L Anion Gap mmol/L BUN (7-17) mg/dL Creatinine (0.52-1.04) mg/dL Est GFR (CKD-EPI)AfAm (>60 ml/min/1.73 sqM) Est GFR (CKD-EPI)NonAf (>60 ml/min/1.73 sqM) Glucose (74-99) mg/dL Calcium (8.4-10.2) mg/dL Total Bilirubin (0.2-1.3) mg/dL AST (14-36) U/L ALT (4-34) U/L Alkaline Phosphatase (38-126) U/L Total Protein (6.3-8.2) g/dL Albumin (3.5-5.0) g/dL Amylase (30-110) U/L Lipase (23-300) U/L Urine Color Yellow Urine Appearance Cloudy H (Clear) Urine pH 6.5 (5.0-8.0) Ur Specific [place] 1.022 (1.001-1.035) Urine Protein Negative (Negative) Urine Glucose (UA) Negative (Negative) Urine Ketones Negative (Negative) Urine Blood Negative (Negative) Urine Nitrite Negative (Negative) Urine Bilirubin Negative (Negative) Urine Urobilinogen <2.0 (<2.0) mg/dL Ur Leukocyte Esterase Small H (Negative) Urine RBC 7 H (0-5) /hpf Urine WBC 2 (0-5) /hpf Ur Squamous Epith Cells 4 (0-4) /hpf Urine Mucus Occasional H (None) /hpf Urine HCG, Qual Not Detected (Not Detectd) Gastric Occult Blood (Negative) 03/31/20 04/01/20 Range/Units 22:36 00:27 WBC (3.8-10.6) k/uL RBC (3.80-5.40) m/uL Hgb (11.4-16.0) gm/dL Hct (34.0-46.0) % MCV (80.0-100.0) fL MCH (25.0-35.0) pg MCHC (31.0-37.0) g/dL RDW (11.5-15.5) % Plt Count (150-450) k/uL Neutrophils % % Lymphocytes % % Monocytes % % Eosinophils % % Basophils % % Neutrophils # (1.3-7.7) k/uL Lymphocytes # (1.0-4.8) k/uL Monocytes # (0-1.0) k/uL Eosinophils # (0-0.7) k/uL Basophils # (0-0.2) k/uL Sodium 137 (137-145) mmol/L Potassium 4.8 (3.5-5.1) mmol/L Chloride 103 (98-107) mmol/L Carbon Dioxide 22 (22-30) mmol/L Anion Gap 12 mmol/L BUN 14 (7-17) mg/dL Creatinine 0.56 (0.52-1.04) mg/dL Est GFR (CKD-EPI)AfAm >90 (>60 ml/min/1.73 sqM) Est GFR (CKD-EPI)NonAf >90 (>60 ml/min/1.73 sqM) Glucose 104 H (74-99) mg/dL Calcium 9.3 (8.4-10.2) mg/dL Total Bilirubin 0.8 (0.2-1.3) mg/dL AST 49 H (14-36) U/L ALT 66 H (4-34) U/L Alkaline Phosphatase 68 (38-126) U/L Total Protein 8.6 H (6.3-8.2) g/dL Albumin 4.9 (3.5-5.0) g/dL Amylase 56 (30-110) U/L Lipase 67 (23-300) U/L Urine Color Urine Appearance (Clear) Urine pH (5.0-8.0) Ur Specific [place] (1.001-1.035) Urine Protein (Negative) Urine Glucose (UA) (Negative) Urine Ketones (Negative) Urine Blood (Negative) Urine Nitrite (Negative) Urine Bilirubin (Negative) Urine Urobilinogen (<2.0) mg/dL Ur Leukocyte Esterase (Negative) Urine RBC (0-5) /hpf Urine WBC (0-5) /hpf Ur Squamous Epith Cells (0-4) /hpf Urine Mucus (None) /hpf Urine HCG, Qual (Not Detectd) Gastric Occult Blood Positive (Negative) Disposition Clinical Impression: Gastritis Disposition: HOME SELF-CARE Condition: Good Instructions (If sedation given, give patient instructions): Gastritis (ED) Prescriptions: Famotidine [Pepcid] 20 mg PO BID #14 tablet Ondansetron Odt [Zofran ODT] 4 mg PO Q8HR PRN #10 tab PRN Reason: Nausea Is patient prescribed a controlled substance at d/c from ED?: No Referrals: Shannen Donis MD [Primary Care Provider] - 1-2 days
[2020-03-31 23:00] LABS: Appearance,Urine Cloudy (Clear); Bilirubin,Urine Negative (Negative); Blood,Urine Negative (Negative); Color,Urine Yellow; Glucose,Urine (UA) Negative (Negative); Ketones,Urine Negative (Negative); Leukocyte Esterase,Urine Small (Negative); Mucus,Urine Occasional /hpf; Nitrite,Urine Negative (Negative); PH, Urine 6.5 (5.0-8.0); Protein,Urine Negative (Negative); RBC,Urine 7 /hpf (0-5); Specific Gravity,Urine 1.022 (1.001-1.035); Squamous Epithelial Cell,Urine 4 /hpf (0-4); Urobilinogen,Urine <2.0 mg/dL (<2.0); WBC,Urine 2 /hpf (0-5)
[2020-03-31 23:03] LABS: ALT 66 U/L (4-34); AST 49 U/L (14-36); African American GFR (CKD) >90 (>60 ml/min/1.73 sqM); Albumin 4.9 g/dL (3.5-5.0); Alkaline Phosphatase 68 U/L (38-126); Amylase 56 U/L (30-110); Anion Gap 12 mmol/L; Blood Urea Nitrogen 14 mg/dL (7-17); Calcium 9.3 mg/dL (8.4-10.2); Carbon Dioxide 22 mmol/L (22-30); Chloride 103 mmol/L (98-107); Glucose 104 mg/dL (74-99); Non-African American GFR(CKD) >90 (>60 ml/min/1.73 sqM); Potassium 4.8 mmol/L (3.5-5.1); Sodium 137 mmol/L (137-145); Total Bilirubin 0.8 mg/dL (0.2-1.3); Total Protein 8.6 g/dL (6.3-8.2)
--- NOTE | 2020-03-31 23:09 | XR ---
EXAMINATION TYPE: XR KUB DATE OF EXAM: 03/31/2020 COMPARISON: NONE HISTORY: Vomiting TECHNIQUE: 2 views upright FINDINGS: Bowel gas pattern is normal. There is no sign of intestinal obstruction or pneumoperitoneum . Fecal pattern is normal. There is no evidence of a mass. Lung bases are clear. There are no patholo gic calcifications over the kidneys. IMPRESSION: Nonacute abdomen.
[2020-03-31 23:24] LABS: Basophils # (A) 0.1 k/uL (0-0.2); Basophils % (A) 1 %; Eosinophils # (A) 0.5 k/uL (0-0.7); Eosinophils % (A) 3 %; HCT 46.1 % (34.0-46.0); HGB 14.9 gm/dL (11.4-16.0); Lymphocytes # (A) 1.2 k/uL (1.0-4.8); Lymphocytes % (A) 9 %; MCH 28.3 pg (25.0-35.0); MCHC 32.3 g/dL (31.0-37.0); MCV 87.6 fL (80.0-100.0); Monocytes # (A) 0.8 k/uL (0-1.0); Monocytes % (A) 6 %; Neutrophils # (A) 10.6 k/uL (1.3-7.7); Neutrophils % (A) 79 %; Platelet Count 128 k/uL (150-450); RBC 5.26 m/uL (3.80-5.40); RDW 13.2 % (11.5-15.5); WBC 13.3 k/uL (3.8-10.6)
[2020-04-01] MEDS ORDERED: ONDANSETRON 4 MG/2 ML VIAL IVP STA (00:24)
[2020-04-01] MEDS ORDERED: FAMOTIDINE 20 MG/2 ML VIAL IV STA (00:24)
[2020-04-01] MEDS ORDERED: FAMOTIDINE 20 MG TAB PO STA (00:44)
[2020-04-01] MEDS ORDERED: ONDANSETRON ODT 4 MG TAB PO STA (00:44)
[2020-04-01 01:02] VITALS: BP 111/73; PULSE 98; RESP 16; TEMP 98.9
== END 2020-04-01 01:04 | disposition home or self-care (01) ==
LOC: EC 22:00
DX: K29.70 Gastritis, unspecified, without bleeding (principal); E07.9 Disorder of thyroid, unspecified; E28.2 Polycystic ovarian syndrome; Z79.890 Hormone replacement therapy; Z79.84 Long term (current) use of oral hypoglycemic drugs; Z20.828 Contact with and (suspected) exposure to other viral communicable diseases
CPT/HCPCS: 36415; 80053; 82150; 83690; 85025; 82271; 81001; 81025; 74018; 99284; U0003

== ENCOUNTER 2021-10-02 11:12 | Inpatient (IN) | payer BC, OTHER ==
[2021-10-02] MEDS ORDERED: LACTATED RINGERS 1,000 ML IV ONE ×2 (11:43)
--- NOTE | 2021-10-02 11:55 | P.PN ---
Progress Note - Text Progress Note Date: 10/02/21 Please see full dictated H&P in the chart. We fully Mrs. Pereyra is a very pleasant 31-year-old female who previously underwent open reduction and internal fixation of the left ankle fracture by myself close to 6 weeks ago. She did well and the early postoperative period but 2 weeks ago developed a small amount of drainage from her incision. She was seen as soon as possible, started on local wound care, and given a prescription for oral antibiotics. After 1 week of wound care and antibiotics the patient failed to improve. I saw her in the office this past Saturday. My recommendation was to perform a formal irrigation and debridement of her wound, exchange the syndesmotic tightrope with braided suture to a screw to decrease and potentially eliminate a nidus of infection, take deep cultures, and close her wound. The patient is well aware of the potential risks and Locations. We also discussed the need of antibiotic suppression both to get her wound to heal and allow the fracture to heal. She may need hardware removal down the road after healing of her fracture. We will plan on surgery this afternoon.
[2021-10-02] MEDS ORDERED: ONDANSETRON 4 MG/2 ML VIAL ONE (12:08)
[2021-10-02] MEDS ORDERED: LIDOCAINE 1% INJ 10MG/ML (20 ML MDV) ONE (12:32)
[2021-10-02] MEDS ORDERED: PROPOFOL 10 MG/ML 20 ML VIAL IV ONE (12:32)
[2021-10-02] MEDS ORDERED: MIDAZOLAM 2 MG/2 ML VIAL ONE (12:32)
[2021-10-02] MEDS ORDERED: fentaNYL (PF) 50 MCG/ML 2 ML AMP ONE (12:32)
[2021-10-02] MEDS ORDERED: HYDROmorphone 0.5 MG/0.5 ML SYRINGE IVP ONE ×3 (13:58→17:26)
[2021-10-02] MEDS ORDERED: hydrOXYzine pamoate 25 MG CAP PO PRN (14:21)
[2021-10-02] MEDS ORDERED: SENNOSIDES-DOCUSATE SODIUM 1 EACH TAB PO PRN (14:21)
[2021-10-02] MEDS ORDERED: HYDROmorphone 1 MG/ML 1 ML SYRINGE IVP PRN (14:21)
[2021-10-02] MEDS ORDERED: ONDANSETRON 4 MG/2 ML VIAL IVP PRN (14:21)
[2021-10-02] MEDS ORDERED: HYDROmorphone 0.2 MG/1 ML SYRINGE IVP PRN (14:21)
[2021-10-02] MEDS ORDERED: VANCOMYCIN IV PER PHARMACY 1 EACH MISC MISCELLANE PRN (14:58)
[2021-10-02 15:04] LABS: Glucose,Whole Blood 63 mg/dL (75-99)
--- NOTE | 2021-10-02 15:11 | FL ---
EXAMINATION TYPE: FL guidance operating room, XR ankle limited LT DATE OF EXAM: 10/02/2021 COMPARISON: NONE HISTORY: 31-year-old female with incision and drainage with hardware exchange. FINDINGS: Intraoperative fluoroscopy of the patient's left ankle shows sideplate and screw fixation of the fibu la and syndesmotic tight rope fixation. A single syndesmotic screw is placed after removal. FLUOROSCOPY Fluoroscopy time of 21 seconds was used during left ankle surgery. 3 image/s document/s the procedur e. IMPRESSION: Intraoperative fluoroscopy as above.
[2021-10-02 15:27] LABS: Glucose,Whole Blood 67 mg/dL (75-99)
[2021-10-02 15:57] LABS: Glucose,Whole Blood 99 mg/dL (75-99)
[2021-10-02] MEDS ORDERED: VANCOMYCIN 1,750 MG in SODIUM CHLORIDE 0.9% 500 ML 500 ML IVPB ONE (18:30)
[2021-10-02 18:55] LABS: Basophils # (A) 0.1 k/uL (0-0.2); Basophils % (A) 1 %; Eosinophils # (A) 0.3 k/uL (0-0.7); Eosinophils % (A) 4 %; HCT 41.1 % (34.0-46.0); HGB 13.2 gm/dL (11.4-16.0); Lymphocytes % (A) 44 %; MCH 29.3 pg (25.0-35.0); MCHC 32.1 g/dL (31.0-37.0); MCV 91.3 fL (80.0-100.0); Monocytes # (A) 0.4 k/uL (0-1.0); Monocytes % (A) 6 %; Neutrophils # (A) 2.9 k/uL (1.3-7.7); Neutrophils % (A) 41 %; Platelet Count 330 k/uL (150-450); RDW 13.6 % (11.5-15.5); WBC 6.9 k/uL (3.8-10.6)
[2021-10-02 19:01] LABS: African American GFR (CKD) >90 (>60 ml/min/1.73 sqM); Non-African American GFR(CKD) >90 (>60 ml/min/1.73 sqM)
--- NOTE | 2021-10-02 19:56 | P.OP ---
Date of Procedure: 10/02/21 Preoperative Diagnosis: 1. History of left ankle open reduction and internal fixation with superficial wound breakdown and nonhealing wound Postoperative Diagnosis: Same Procedure(s) Performed: 1. Left ankle irrigation and debridement 2. Exchange of hardware left ankle Anesthesia: JENNIFER Surgeon: Rashad Paredes Estimated Blood Loss (ml): 20 IV fluids (ml): 1,000 Pathology: none sent (deep cultures) Condition: stable Disposition: PACU Indications for Procedure: The patient is a very pleasant 31-year-old female who previously sustained an unstable left ankle fracture and underwent open reduction and internal fixation close to 6 weeks ago. She is doing well until a week and a half ago when she noticed dehiscence over the distal third of her incision. She was immediately seen in the office and found to have superficial wound breakdown over the distal aspect of the lateral malleolus incision. She was started on oral antibiotics and instructed on daily dressing changes. She was seen in the office 1 week later and had continued malodorous drainage and further wound breakdown. I recommended irrigation and debridement in the operating room. We discussed potential risks and complications of surgery including but certainly not limited to risks from anesthesia, superficial infection, deep infection, continued infection, nonhealing of the wound, delayed wound healing, damage to blood vessels or nerves, nonunion, malunion, systematic hardware, need for further surgery, DVT, PE, and inability to regain preinjury level of function, possibly loss of life or limb. The patient voiced her understanding of this and also acknowledges that other less common complications are possible. She provided both her verbal and written consent to go forward with surgery. Operative Findings: There superficial wound breakdown over the distal third of the incision. There is a prominent nonabsorbable suture knot at the site of wound breakdown from the syndesmotic fixation device. There was a small amount of malodorous drainage but no vincent purulence. There is no sign of osteomyelitis. Description of Procedure: The patient was identified in preoperative holding and the correct left ankle was marked with my initials. I reviewed the consent form with the patient and all of her questions were answered. The patient was brought back to the operating room by anesthesia. She was given a spinal anesthetic followed by IV anesthesia. The tourniquet was applied the proximal aspect of the left leg. The right leg was secured to the table with foam and tape. All bony prominences were well-padded. The left leg was then prepped and draped in the standard sterile fashion. Prior to starting surgery timeout was performed identifying the correct patient, operative extremity, and procedure. The patient's leg was then elevated for 2 minutes and the tourniquet was inflated to 250 mmHg. I began by outlining the area of wound breakdown and created an ellipse. The incision was extended proximally and distally to allow closure. The nonviable skin margins were excised with a scalpel. Dissection was carried down to the level of the plate. At the site of wound breakdown there was a nonabsorbable not present from the syndesmotic fixation device. Deep cultures were taken. A stab incision was made medially over the scar and dissection was carried down to the button from the syndesmotic fixation device. The sutures were cut and the button was removed. Laterally the tight rope was removed. The screw hole from the syndesmotic tight rope was cultured. An excisional debridement was then performed of all nonviable skin and subcutaneous tissue down to the level of bone. The wound was then thoroughly irrigated using sterile saline with cystoscopy tubing. At this point a syndesmotic screw was placed to hold the reduction given the high Freeman C fibula fracture. A locking screw was placed distal to the syndesmotic screw in the site of the prior syndesmotic tight rope. The wound was again thoroughly irrigated with sterile saline using cystoscopy tubing. The deep tissue over the plate was closed with 2-0 Prolene. The superficial subcutaneous layer was closed with interrupted 3-0 Monocryl. The skin was closed with interrupted 3-0 nylon using vertical mattress sutures. The medial stab incision was closed with 3-0 nylon vertical mattress sutures. I verified that all instrument, sponge, and sharp counts were correct. A sterile dressing was applied medially. An incisional wound VAC was placed over the lateral malleolus incision. A soft dressing was applied and the patient was transferred off the operating room table. She was extubated and brought to recovery having tolerated the procedure well. Plan: The patient is going to be admitted overnight for pain control and IV antibiotics. Multiple intraoperative cultures were taken. I would like to consult infectious disease for assistance with suppressive antibiotics. She can discharge home once a plan for antibiotics has been made. The incisional wound VAC will be changed prior to discharge.
[2021-10-02] MEDS: HYDROcodone/APAP 5-325MG 1 EACH TAB PO PRN (20:00)
[2021-10-02] MEDS: HYDROmorphone 1 MG/ML 1 ML SYRINGE IVP PRN (23:43)
[2021-10-03] MEDS: VANCOMYCIN 1,750 MG in SODIUM CHLORIDE 0.9% 500 ML 500 ML IVPB SCH ×4 (01:15→20:07)
[2021-10-03] MEDS: HYDROcodone/APAP 5-325MG 1 EACH TAB PO PRN ×4 (01:18→20:02)
[2021-10-03 03:36] LABS: African American GFR (CKD) >90 (>60 ml/min/1.73 sqM); C Reactive Protein <0.5 mg/dL (<1.0); Non-African American GFR(CKD) >90 (>60 ml/min/1.73 sqM)
--- NOTE | 2021-10-03 09:58 | P.PN ---
Subjective Progress Note Date: 10/03/21 This patient is a 31-year-old female who is status-post left ankle irrigation and debridement with exchange of hardware on 10/02/21. Today is post-operative day #1. The patient is seen and examined bedside. She states her pain is well controlled. Wound VAC is in place of the left ankle. There are no new complaints or concerns this morning. Vital signs stable. Objective - Vital Signs Vital signs: Vital Signs Temp 98.5 F 10/03/21 07:58 Pulse 73 10/03/21 07:58 Resp 16 10/03/21 07:58 BP 109/72 10/03/21 07:58 Pulse Ox 93 L 10/03/21 07:58 Intake & Output 10/02/21 10/03/21 10/03/21 18:59 06:59 18:59 Intake Total 750 Output Total 20 Balance 730 Weight 104.33 kg Intake: IV 750 Output: Urine 0 Estimated Blood Loss 20 Other: Voiding Method Toilet # Voids 2 - Exam On examination, patient is sitting up in bed in no apparent distress. She is alert and oriented 3. On inspection of the left ankle, there is a surgical dressing in place. Amador wrap is clean and intact. Wound VAC is in place with a good seal at this time. The visible portion of the toes are warm and well perfused with brisk capillary refill. No pain with passive nzwem-mq-sojout of the toes. Motor and sensory function is intact of the left lower extremity. - Labs CBC & Chem 7: 10/02/21 18:41 10/03/21 02:49 Labs: Abnormal Lab Results - Last 24 Hours (Table) 10/02/21 10/02/21 Range/Units 15:01 15:25 POC Glucose (mg/dL) 63 L 67 L (75-99) mg/dL Microbiology - Last 24 Hours (Table) 10/02/21 13:06 Gram Stain - Preliminary Ankle - Left Wound Culture - Preliminary 10/02/21 13:06 Gram Stain - Preliminary Ankle - Left Wound Culture - Preliminary 10/02/21 13:06 Anaerobic Culture - Preliminary Ankle - Left 10/02/21 13:06 Tissue Culture - Preliminary Ankle - Left 10/02/21 13:06 Anaerobic Culture - Preliminary Ankle - Left 10/02/21 13:06 Anaerobic Culture - Preliminary Ankle - Left Assessment and Plan Assessment: Status-post left ankle irrigation and debridement with exchange of hardware on 10/02/21. Post-operative day #1. History of left ankle ORIF 08/16/21. Plan: - Keep wound VAC in place at this time. We will plan to remove wound VAC prior to discharge. - Non-weight bearing operative leg. - Pain management as needed. - Keep operative extremity elevated for swelling and pain control. - Infectious disease has been consulted for antibiotic recommendations. Will follow intra-operative cultures. - Anticipate discharge home when antibiotics have been decided.
[2021-10-03] MEDS: HYDROmorphone 1 MG/ML 1 ML SYRINGE IVP PRN (13:27)
[2021-10-03] MEDS: FAMOTIDINE 20 MG TAB PO SCH (20:02)
[2021-10-03] MEDS: metFORMIN 500 MG TAB PO SCH (20:02)
[2021-10-04] MEDS: HYDROcodone/APAP 5-325MG 1 EACH TAB PO PRN ×4 (00:53→20:57)
[2021-10-04] MEDS: VANCOMYCIN 1,750 MG in SODIUM CHLORIDE 0.9% 500 ML 500 ML IVPB SCH ×2 (05:02→13:01)
[2021-10-04] MEDS: metFORMIN 500 MG TAB PO SCH ×2 (08:32→20:57)
[2021-10-04] MEDS: LORATADINE 10 MG TAB PO SCH (08:32)
--- NOTE | 2021-10-04 11:03 | P.PN ---
Subjective Progress Note Date: 10/04/21 This patient is a 31-year-old female who is status-post left ankle irrigation and debridement with exchange of hardware on 10/02/21. Today is post-operative day #2. The patient is seen and examined bedside. She was up with physical therapy yesterday. Wound vac remains in place. Patient has no complaints or concerns today. Objective - Vital Signs Vital signs: Vital Signs Temp 98.1 F 10/04/21 07:48 Pulse 68 10/04/21 07:48 Resp 20 10/04/21 08:26 BP 115/73 10/04/21 07:48 Pulse Ox 94 L 10/04/21 07:48 Intake & Output 10/03/21 10/04/21 10/04/21 18:59 06:59 18:59 Intake Total 200 Balance 200 Intake: Oral 200 Other: Voiding Method Toilet Toilet Toilet # Voids 1 2 - Exam On examination, patient is sitting up in bed in no apparent distress. She is alert and oriented 3. On inspection of the left ankle, there is a surgical dressing in place. Amador wrap is clean and intact. Wound VAC is in place with a good seal at this time. The visible portion of the toes are warm and well perfused with brisk capillary refill. No pain with passive brbgd-jx-wyjlef of the toes. Motor and sensory function is intact of the left lower extremity. - Labs CBC & Chem 7: 10/02/21 18:41 10/03/21 02:49 Labs: Microbiology - Last 24 Hours (Table) 10/02/21 13:06 Gram Stain - Preliminary Ankle - Left Tissue Culture - Preliminary 10/02/21 13:06 Gram Stain - Preliminary Ankle - Left Wound Culture - Preliminary 10/02/21 13:06 Gram Stain - Preliminary Ankle - Left Wound Culture - Preliminary 10/03/21 02:49 Blood Culture - Preliminary Blood No Growth after 24 hours Assessment and Plan Assessment: Status-post left ankle irrigation and debridement with exchange of hardware on 10/02/21. Post-operative day #2. History of left ankle ORIF 08/16/21. Plan: - Discharge antibiotics were discussed with Dr. Javier. If cultures negative tomorrow, will plan to discharge tomorrow on oral Keflex. - Keep wound VAC in place at this time. We will plan to remove wound VAC prior to discharge. - Non-weight bearing operative leg. - Pain management as needed. - Keep operative extremity elevated for swelling and pain control. - Possible discharge home tomorrow. Will plan to remove wound vac at that time.
[2021-10-04] MEDS ORDERED: VANCOMYCIN TROUGH DUE 1 EACH MISC MISCELLANE ONE (12:00)
--- NOTE | 2021-10-04 12:04 | P.CONS ---
History of Present Illness - Reason for Consult Consult date: 10/03/21 Antibiotic recommendation Requesting physician: Rashad Paredes - Chief Complaint Left ankle wound x2 weeks - History of Present Illness Patient is a 31-year female with a recent left ankle fracture with initial surgery on August 07, 2021 the patient started having some dehiscence of the lower end of the incision on September 22 and apparently a slight drainage from the area patient has been treated with oral Bactrim DS with no significant improvement subsequently patient did have cultures done on 09/29/2021, patient has been subsequently admitted to the hospital on 10/02/2021 for removal of the hardware that may have been causing nonhealing of this wound or irritation patient did have a surgery completed on 10/02/2021 or cultures has been obtained which are currently pending patient be started on vancomycin infectious he was consulted for further management of antibiotic therapy, patient on presentation to the hospital has been afebrile no fever has been recorded subsequently patient did have mild dull aching pain to the left ankle area more of a dull aching 3-4 out of 10 in radiation he denies having any chest pain shortness of breath or cough no nausea vomiting abdominal pain no diarrhea patient did have a normal white count on presentation to the hospital kidney function has been normal Review of Systems Positive point has been mentioned in HPI, rest of the systems are negative Past Medical History Past Medical History: Thyroid Disorder Additional Past Medical History / Comment(s): fx left ankle, current tx of staph infection behind ear,hx Covid infection November 2020,PCOS,gestational diabetes History of Any Multi-Drug Resistant Organisms: None Reported Past Surgical History: Section Additional Past Surgical History / Comment(s): c section Past Anesthesia/Blood Transfusion Reactions: Family Hisory of Malignant Hyperthermia, Motion Sickness, No Reported Reaction Additional Past Anesthesia/Blood Transfusion Reaction / Comm: Father has hx of malignant hyperthermia, pt has never had general anesthesia or testing done for malignant hyperthermia.no hx blood transfusion Past Psychological History: No Psychological Hx Reported Smoking Status: Never smoker Past Alcohol Use History: None Reported, Occasional Past Drug Use History: None Reported Medications and Allergies Home Medications Medication Instructions Recorded Confirmed Type Acetaminophen [Tylenol] 500 - 1,000 mg PO Q4-6H PRN 08/09/21 10/02/21 History Salvador/D3/Mag11/Zinc/Hand Glass Cutter/Isidro/Bor 1 each PO DAILY 08/09/21 10/02/21 History [Caltrate 600+D Plus Tablet] Famotidine [Pepcid] 20 mg PO HS 08/09/21 10/02/21 History Loratadine [Claritin] 10 mg PO DAILY 08/09/21 10/02/21 History Multivitamins, Thera [Multivitamin 1 tab PO DAILY 08/09/21 10/02/21 History (formulary)] Thyroid,Pork [Horse Wrangler Thyroid] 90 mg PO QAM 08/09/21 10/02/21 History metFORMIN HCL [Glucophage] 1,000 mg PO HS 08/09/21 10/02/21 History metFORMIN HCL [Glucophage] 500 mg PO QAM 08/09/21 10/02/21 History Aspirin 81 mg PO BID 14 Days #28 tab 08/16/21 10/02/21 Rx Docusate [Colace] 100 mg PO BID #60 capsule 08/16/21 10/02/21 Rx HYDROcodone/APAP 5-325MG [[place] 1 tab PO Q6HR PRN 7 Days #28 tab 08/16/21 10/02/21 Rx 5-325] Allergies Allergy/AdvReac Type Severity Reaction Status Date / Time latex Allergy skin Verified 10/02/21 11:55 irritation,red skin Physical Exam Vitals: Vital Signs Temp Pulse Pulse Resp BP BP Pulse Ox 10/03/21 07:58 98.5 F 73 16 109/72 93 L 10/03/21 02:00 98.7 F 80 16 102/66 94 L 10/02/21 19:55 98.4 F 78 16 103/71 94 L 10/02/21 19:24 78 16 10/02/21 17:50 65 16 118/59 96 10/02/21 17:30 70 16 117/62 98 10/02/21 16:30 68 16 116/59 97 10/02/21 15:45 65 16 111/58 98 10/02/21 15:30 62 16 114/64 100 10/02/21 15:15 67 16 114/58 100 10/02/21 15:00 65 16 125/54 99 10/02/21 14:48 52 L 16 96/55 10 L 10/02/21 14:33 53 L 16 95/53 100 10/02/21 14:18 55 L 16 100/58 100 10/02/21 14:03 59 L 16 103/52 100 10/02/21 13:48 98 F 78 16 120/62 100 10/02/21 11:59 98.2 F 76 16 128/84 96 Intake and Output 10/02/21 10/03/21 10/03/21 22:59 06:59 14:59 Intake Total 300 Output Total 0 Balance 300 Intake: IV 300 Output: Urine 0 Other: Voiding Method Toilet Toilet # Voids 2 Weight 104.33 kg GENERAL DESCRIPTION: Middle-aged female lying in bed, no distress. No tachypnea or accessory muscle of respiration use. HEENT: Shows Pallor , no scleral icterus. Oral mucous membrane is dry. No pharyngeal erythema or thrush NECK: Trachea central, no thyromegaly. LUNGS: Unlabored breathing. Clear to auscultation anteriorly. No wheeze or scraper burrer ckle. HEART: S1, S2, regular rate and rhythm. No loud murmur ABDOMEN: Soft, no tenderness , guarding or rigidity, no organomegaly EXTREMITIES: Left ankle is currently covered with a wound VAC. SKIN: No rash, no masses palpable. NEUROLOGICAL: The patient is awake, alert, oriented x3, mood and affect normal. Results CBC & Chem 7: 10/02/21 18:41 10/03/21 02:49 Labs: Abnormal Lab Results - Last 24 Hours (Table) 10/02/21 10/02/21 Range/Units 15:01 15:25 POC Glucose (mg/dL) 63 L 67 L (75-99) mg/dL Microbiology - Last 24 Hours (Table) 10/02/21 13:06 Gram Stain - Preliminary Ankle - Left Wound Culture - Preliminary 10/02/21 13:06 Gram Stain - Preliminary Ankle - Left Wound Culture - Preliminary 10/02/21 13:06 Anaerobic Culture - Preliminary Ankle - Left 10/02/21 13:06 Tissue Culture - Preliminary Ankle - Left 10/02/21 13:06 Anaerobic Culture - Preliminary Ankle - Left 10/02/21 13:06 Anaerobic Culture - Preliminary Ankle - Left Assessment and Plan (1) Wound of left ankle Current Visit: Yes Status: Acute Code(s): S91.002A - UNSPECIFIED OPEN WOUND, LEFT ANKLE, INITIAL ENCOUNTER SNOMED Code(s): 471002705 Plan: 1-Patient with a nonhealing wound to the left ankle area in this patient who did have a fracture to the left ankle with initial repair on 08/08/2021 with subsequent mild dehiscence questionable related to the hardware irritation this patient who is status post replacement of the hardware no evidence of any gross purulence documented by the operative report. 2we will obtain a sed rate and CRP and will wait for the culture to finalize 3vancomycin pharmacy dose while watching her kidney function and culture closely. 4discharge antibiotic on the basis of the final culture and clinical response we will follow on clinical condition and cultures to further adjust medication if needed Thank you for this consultation will follow this patient along with you Time with Patient: Greater than 30
[2021-10-04 12:39] LABS: African American GFR (CKD) >90 (>60 ml/min/1.73 sqM); Non-African American GFR(CKD) >90 (>60 ml/min/1.73 sqM)
[2021-10-04] MEDS: FAMOTIDINE 20 MG TAB PO SCH (20:57)
[2021-10-04] MEDS: VANCOMYCIN 1,500 MG in SODIUM CHLORIDE 0.9% 250 ML IVPB SCH (21:01)
--- NOTE | 2021-10-04 22:01 | P.PN ---
Subjective Progress Note Date: 10/04/21 Principal diagnosis: Left ankle wound and a question of cellulitis Patient is a 31-year-old female with recent left ankle fracture repair with hardware subsequently admitted to the hospital with concerning for wound dehiscence possibly related hardware which has been exchanged and a question of infection. On today's evaluation that is 10/04/2021, the patient denies having any fever or chills, patient pain to the left ankle is currently controlled the patient denies having any chest pain shortness of breath or cough no nausea no vomiting no abdominal pain no diarrhea Objective - Vital Signs Vital signs: Vital Signs Temp 98.1 F 10/04/21 07:48 Pulse 68 10/04/21 07:48 Resp 20 10/04/21 08:26 BP 115/73 10/04/21 07:48 Pulse Ox 94 L 10/04/21 07:48 Intake & Output 10/03/21 10/04/21 10/04/21 18:59 06:59 18:59 Intake Total 200 Balance 200 Intake: Oral 200 Other: Voiding Method Toilet Toilet Toilet # Voids 1 2 - Exam GENERAL DESCRIPTION: Middle-aged female lying in bed in no distress RESPIRATORY SYSTEM: Unlabored breathing , decreased breath sounds at bases HEART: S1 S2 regular rate and rhythm , ABDOMEN: Soft , no tenderness EXTREMITIES: Left ankle is currently covered with DRESSING/WOUND VAC - Labs CBC & Chem 7: 10/02/21 18:41 10/04/21 11:35 Labs: Microbiology - Last 24 Hours (Table) 10/02/21 13:06 Gram Stain - Preliminary Ankle - Left Tissue Culture - Preliminary 10/02/21 13:06 Gram Stain - Preliminary Ankle - Left Wound Culture - Preliminary 10/02/21 13:06 Gram Stain - Preliminary Ankle - Left Wound Culture - Preliminary 10/03/21 02:49 Blood Culture - Preliminary Blood No Growth after 24 hours Assessment and Plan (1) Wound of left ankle Current Visit: Yes Status: Acute Code(s): S91.002A - UNSPECIFIED OPEN WOUND, LEFT ANKLE, INITIAL ENCOUNTER SNOMED Code(s): 925727174 Plan: 1-Patient with a nonhealing wound to the left ankle area in this patient who did have a fracture to the left ankle with initial repair on 08/08/2021 with subsequent mild dehiscence questionable related to the hardware irritation this patient who is status post replacement of the hardware no evidence of any gross purulence documented by the operative report. 2patient did have normal sed rate and CRP which go against any deep infection cultures are currently pending 3vancomycin pharmacy dose while watching her kidney function and culture closely. 4if cultures remains to be negative will be able to switch her over to short course of oral Keflex on discharge, this was discussed with the nurse practitioner for orthopedics
[2021-10-05 03:22] VITALS: TEMP 97.6
[2021-10-05] MEDS: VANCOMYCIN 1,500 MG in SODIUM CHLORIDE 0.9% 250 ML IVPB SCH (04:09)
[2021-10-05 07:46] VITALS: BP 113/70; PULSE 74; RESP 14
[2021-10-05] MEDS: metFORMIN 500 MG TAB PO SCH (09:14)
[2021-10-05] MEDS: LORATADINE 10 MG TAB PO SCH (09:15)
[2021-10-05] MEDS: HYDROcodone/APAP 5-325MG 1 EACH TAB PO PRN (09:28)
--- NOTE | 2021-10-05 10:34 | P.DS ---
Providers Date of admission: 10/02/21 14:21 Expected date of discharge: 10/05/21 Attending physician: Rashad Paredes Consults: 10/02/21 14:55 Consult Physician Routine Consulting Provider: Anita Javier Consult Reason/Comments: antibiotic recommendations Do you want consulting provider notified?: Yes Primary care physician: Stated None - Discharge Diagnosis(es) (1) Status post incision and drainage Current Visit: Yes Status: Acute (2) Infection of bone of left ankle Current Visit: Yes Status: Acute (3) Wound of left ankle Current Visit: Yes Status: Acute Hospital Course: The patient is a very pleasant 31-year-old female who previously sustained an unstable left ankle fracture and underwent open reduction and internal fixation close to 6 weeks ago. She is doing well until a week and a half ago when she noticed dehiscence over the distal third of her incision. She was immediately seen in the office and found to have superficial wound breakdown over the distal aspect of the lateral malleolus incision. She was started on oral antibiotics and instructed on daily dressing changes. She was seen in the office 1 week later and had continued malodorous drainage and further wound breakdown. I recommended irrigation and debridement in the operating room. We discussed potential risks and complications of surgery including but certainly not limited to risks from anesthesia, superficial infection, deep infection, continued infection, nonhealing of the wound, delayed wound healing, damage to blood vessels or nerves, nonunion, malunion, systematic hardware, need for further surgery, DVT, PE, and inability to regain preinjury level of function, possibly loss of life or limb. The patient voiced her understanding of this and also acknowledges that other less common complications are possible. She provided both her verbal and written consent to go forward with surgery. The patient is taken to surgery on 10/02/2021 for removal of hardware and irrigation and debridement of the right ankle. Patient is doing well postoperatively. She has been followed by infectious disease. Cultures are negative at this point. She is to be discharged to home on oral antibiotics per infectious disease. She is in an equalizer boot. Her wound VAC was removed today. Please see med rec for accurate list of home medications. Plan - Discharge Summary Discharge Rx Participant: Yes New Discharge Prescriptions: New Docusate [Colace] 100 mg PO BID #60 capsule HYDROcodone/APAP 5-325MG [[place] 5-325] 1 tab PO Q6HR PRN 7 Days #28 tab PRN Reason: Pain Cephalexin [Keflex] 500 mg PO Q8HR 7 Days #21 cap No Action metFORMIN HCL [Glucophage] 500 mg PO QAM Thyroid,Pork [Automotive Parts Counter Associate Thyroid] 90 mg PO QAM Multivitamins, Thera [Multivitamin (formulary)] 1 tab PO DAILY Loratadine [Claritin] 10 mg PO DAILY Acetaminophen [Tylenol] 500 - 1,000 mg PO Q4-6H PRN PRN Reason: Pain [place]/D3/Mag11/Zinc/Requirements Analyst/Isidro/Bor [Caltrate 600+D Plus Tablet] 1 each PO DAILY HYDROcodone/APAP 5-325MG [[place] 5-325] 1 tab PO Q6HR PRN 7 Days #28 tab PRN Reason: Pain Aspirin 81 mg PO BID 14 Days #28 tab metFORMIN HCL [Glucophage] 1,000 mg PO HS Famotidine [Pepcid] 20 mg PO HS Docusate [Colace] 100 mg PO BID #60 capsule Discharge Medication List Acetaminophen [Tylenol] 500 - 1,000 mg PO Q4-6H PRN 08/09/21 [History] [place]/D3/Mag11/Zinc/Requirements Analyst/Isidro/Bor [Caltrate 600+D Plus Tablet] 1 each PO DAILY 08/09/21 [History] Famotidine [Pepcid] 20 mg PO HS 08/09/21 [History] Loratadine [Claritin] 10 mg PO DAILY 08/09/21 [History] Multivitamins, Thera [Multivitamin (formulary)] 1 tab PO DAILY 08/09/21 [History] Thyroid,Pork [Automotive Parts Counter Associate Thyroid] 90 mg PO QAM 08/09/21 [History] metFORMIN HCL [Glucophage] 1,000 mg PO HS 08/09/21 [History] metFORMIN HCL [Glucophage] 500 mg PO QAM 08/09/21 [History] Aspirin 81 mg PO BID 14 Days #28 tab 08/16/21 [Rx] Docusate [Colace] 100 mg PO BID #60 capsule 08/16/21 [Rx] HYDROcodone/APAP 5-325MG [[place] 5-325] 1 tab PO Q6HR PRN 7 Days #28 tab 08/16/21 [Rx] Docusate [Colace] 100 mg PO BID #60 capsule 10/04/21 [Rx] HYDROcodone/APAP 5-325MG [[place] 5-325] 1 tab PO Q6HR PRN 7 Days #28 tab 10/04/21 [Rx] Cephalexin [Keflex] 500 mg PO Q8HR 7 Days #21 cap 10/05/21 [Rx] Follow up Appointment(s)/Referral(s): Anita Javier MD [STAFF PHYSICIAN] - 10/16/21 1:45 pm Rashad Paredes MD [Medical Doctor] - 10/12/21 9:00 am Activity/Diet/Wound Care/Special Instructions: Keep operative extremity elevated for swelling control. May remove CAM boot while in bed. Antibiotics per infectious Dr. Javier. Follow-up with Dr. Javier as scheduled. Take pain medications as needed. Follow-up in the office with Dr. Paredes in one week. Call the office with any questions or concerns, Discharge Disposition: HOME SELF-CARE
[2021-10-05] MEDS ORDERED: ACETAMINOPHEN TAB 325 MG TAB PO STA (12:53)
[2021-10-06] MEDS ORDERED: VANCOMYCIN TROUGH DUE 1 EACH MISC MISCELLANE ONE (04:00)
== END 2021-10-05 14:55 | disposition home or self-care (01) | DRG 857 ==
LOC: OR 11:12 → 4SSUR 14:21 → 5NMEDONC 17:01 → 4SSUR 17:13
PROVIDERS: ADMIT Orthopaedic Surgery; ATTEND Orthopaedic Surgery
PROC: 0QBK0ZZ Excision of Left Fibula, Open Approach (ICD-10-PCS; 2021-10-02)
PROC: 0JQR0ZZ Repair Left Foot Subcutaneous Tissue and Fascia, Open Approach (ICD-10-PCS; 2021-10-02)
PROC: 0QHK04Z Insertion of Internal Fixation Device into Left Fibula, Open Approach (ICD-10-PCS; 2021-10-02)
PROC: 0SPG04Z Removal of Internal Fixation Device from Left Ankle Joint, Open Approach (ICD-10-PCS; principal; 2021-10-02 07:30)
DX: T81.49XA Infection following a procedure, other surgical site, initial encounter (principal); T85.79XA Infection and inflammatory reaction due to other internal prosthetic devices, implants and grafts, initial encounter; T81.30XA Disruption of wound, unspecified, initial encounter; Z86.16 Personal history of COVID-19; Z86.32 Personal history of gestational diabetes; Z79.84 Long term (current) use of oral hypoglycemic drugs; Z79.82 Long term (current) use of aspirin; Z84.89 Family history of other specified conditions; Z20.822 Contact with and (suspected) exposure to COVID-19; E28.2 Polycystic ovarian syndrome; Y84.8 Other medical procedures as the cause of abnormal reaction of the patient, or of later complication, without mention of misadventure at the time of the procedure; E07.9 Disorder of thyroid, unspecified; S82.55XD Nondisplaced fracture of medial malleolus of left tibia, subsequent encounter for closed fracture with routine healing; S82.62XD Displaced fracture of lateral malleolus of left fibula, subsequent encounter for closed fracture with routine healing
CPT/HCPCS: 80202; 81025; 82565; 84703; 85025; 85652; 86140; 87040; 87070; 87075; 87205; 87635

== ENCOUNTER → 2025-03-12 | Outpatient (CLI) | payer BC ==
--- NOTE | 2025-03-12 15:22 | US ---
EXAMINATION TYPE: US gallbladder DATE OF EXAM: 03/12/2025 COMPARISON: NONE CLINICAL INDICATION: Female, 35 years old with history of R74.01 ELEVATION OF LEVELS OF LIVER TRANSAM INASE L; Intermittent RUQ to right shoulder pain TECHNIQUE: Grayscale and color Doppler imaging of the right upper quadrant was performed. FINDINGS: EXAM MEASUREMENTS: Liver Length: 26.3 cm Gallbladder Wall: 0.2 cm CBD: 0.4 cm Right Kidney: 14.0 x 5.1 x 4.9 cm BEHAVIORAL INSTRUCTOR NOTES: Pancreas: wnl Liver: Increased attenuation, decreased visualization of vessels suggestive of moderate fatty infilt rate Gallbladder: wnl Evidence for sonographic Cosme's sign: No CBD: wnl Right Kidney: wnl IMPRESSION: Hepatomegaly with moderate fatty infiltration of the liver. [facility], , 03/12/2025 3:19 PM
== END | disposition home or self-care (01) ==
LOC: RADUSWWP 14:33
PROVIDERS: ATTEND Family Medicine
DX: K76.0 Fatty (change of) liver, not elsewhere classified (principal); R16.0 Hepatomegaly, not elsewhere classified; R74.01 Elevation of levels of liver transaminase levels
CPT/HCPCS: 76705